=== PATIENT | male | born 1960 | race Caucasian/White ===

== ENCOUNTER → 2021-02-25 | Outpatient (CLI) | payer OTHER | LOC: HEART 5 13:59 | DX: R06.00 Dyspnea, unspecified (principal); R05.3 Chronic cough | CPT/HCPCS: 70210; 94060; 94729 ==

== ENCOUNTER → 2021-04-17 | Outpatient (CLI) | payer OTHER | LOC: KOH-I 09:10 | DX: M25.572 Pain in left ankle and joints of left foot (principal); M79.671 Pain in right foot | CPT/HCPCS: 73610; 73630 ==